=== PATIENT | female | born 1965 | race African-American/Black ===

== ENCOUNTER → 2019-10-16 | Outpatient (CLI) | payer MEDICARE ==
[~2019-10-16] MED LIST: IOHEXOL 300 MG/ML 50 ML VIAL. IT ONE; LIDOCAINE 1% Multi-Dose 20 ML VIAL. ID ONE
--- NOTE | 2019-10-16 12:39 | KCIC ---
Thoracic myelogram 10/16/2019 Clinical History: Chronic mid back pain and burning. Technique: After the risks and benefits of the procedure were explained to the patient, written informed consent was obtained. The patient was placed prone on the fluoroscopy table and the lower back was prepped and draped in sterile fashion. 1% lidocaine was used as a local anesthetic. Under fluoroscopic guidance, the thecal sac of the lumbar cistern was punctured at the L2-L3 level using 25-gauge Danya needle. After confirming clear CSF return, 9 cc of Omnipaque 300 were injected through the needle into the thecal sac of the lumbar cistern under fluoroscopic guidance. Following this the needle was removed and hemostasis achieved at the puncture site. A sterile bandage was placed on the skin puncture site. Following this the contrast column was advanced into the thoracic spine under fluoroscopy and multiple AP and lateral digital spot radiographs of the thoracic spine were obtained. Following this the patient was taken to CT where a CT scan of the thoracic spine was performed. This will be reported separately. Following the examinations the patient was sent home with an instruction sheet. The patient tolerated the procedure well and there were no immediate complications. The total fluoroscopic time for this procedure was 56 seconds. 7 digital spot radiographs were obtained. FINDINGS: Minimal S-shaped curvature of the thoracolumbar spine is seen. Leads related to a stimulator device are seen within the posterior soft tissues of the lower thoracic spine within the midline. Very mild degenerative changes are seen involving the thoracic disc spaces consisting of vertebral endplate sclerosis and minimal to mild anterior vertebral body osteophyte formation. No extradural defect is seen upon the contrast column within the thoracic spine. There is no evidence of complete block of contrast. The patient is post anterior fusion of the mid and lower cervical spine using an anterior plate, bone screws and bone graft material. IMPRESSION: Very mild degenerative changes are seen involving the thoracic spine as discussed above. No extradural defect is seen upon the contrast column. Electronically signed by: Axel Daniels MD (10/16/2019 12:36 PM) [facility]-[id number]
--- NOTE | 2019-10-16 12:59 | KCIC ---
CT thoracic myelogram 10/16/2019 CLINICAL HISTORY: Chronic mid back pain and burning. TECHNIQUE: This study was performed after a thoracic myelogram. Contiguous, 0.6 mm axial sections were obtained through the thoracic spine. 3 mm reconstructed sagittal, axial and coronal images were obtained. One or more of the following individualized dose reduction techniques were utilized for this study: 1. Automated exposure control. 2. Adjustment of the mA and/or kV according to patient size. 3. Use of iterative reconstruction technique. FINDINGS: Comparison is made to the patient's MRI of the lumbar spine dated 08/02/2019. This was performed at [facility]. Additional comparison is made to the patient's thoracic myelogram performed earlier today. Sagittal and coronal reconstructed images demonstrate very mild S-shaped curvature of the thoracolumbar spine. A stimulator device overlies the superior left gluteal region on the public health aides teacher images. Leads extend to the posterior subcutaneous fat of the mid thoracic spine within the midline. Additional stimulator leads extend from this superiorly into the posterior neck. Their superior extent is not included on this study. Very mild degenerative changes are seen involving the thoracic disc spaces consisting of vertebral endplate sclerosis and minimal to mild anterior vertebral body osteophyte formation. On the axial images throughout the thoracic spine degenerative changes are seen involving the facet joints of the lower thoracic disc spaces. No focal disc herniation is seen. No area of significant central spinal canal or neural foraminal stenosis is noted. IMPRESSION: Mild degenerative changes are seen involving the thoracic spine as discussed above. No area of significant central spinal canal or neural foraminal stenosis is seen. Electronically signed by: Axel Daniels MD (10/16/2019 12:56 PM) [facility]-KCIC1
== END | disposition home or self-care (01) ==
LOC: KCIC 09:50
PROVIDERS: ATTEND Neurological Surgery
DX: M47.814 Spondylosis without myelopathy or radiculopathy, thoracic region (principal); M25.78 Osteophyte, vertebrae; G89.29 Other chronic pain
CPT/HCPCS: 72129; 72255; Q9967

== ENCOUNTER → 2019-11-17 | Outpatient (CLI) | payer MEDICARE ==
[~2019-11-17] MED LIST changes: +CARV25TA2 PO; +CLON1PAT3 TD; +HYDR4TAB45 PO; -IOHEXOL 300 MG/ML 50 ML VIAL. IT ONE; -LIDOCAINE 1% Multi-Dose 20 ML VIAL. ID ONE; +LINZESS290 MCG PO; +OXYC20TA PO
--- NOTE | 2019-11-17 14:50 | EKG ---
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
--- NOTE | 2019-11-17 19:34 | RAD ---
CHEST PA LATERAL History: Preoperative evaluation. Removal of the stimulator. Comparison: None. Findings: Frontal and lateral view of the chest were obtained. The cardiomediastinal silhouette is normal. Pulmonary vasculature is normal. The lungs are clear. No pleural effusion or pneumothorax is seen. There is no acute bone abnormality. Stimulator leads are noted within the soft tissues of the back extending superiorly beyond the [id number]. These also extend inferiorly beyond the atqoq-wp-nvey. IMPRESSION: No acute cardiopulmonary process. Electronically signed by: Jr Hicks MD (11/17/2019 7:31 PM) [id number]
== END | disposition home or self-care (01) ==
LOC: SURGPAT 13:55
PROVIDERS: ATTEND Neurological Surgery
DX: Z01.818 Encounter for other preprocedural examination (principal); M54.5 Low back pain; M54.2 Cervicalgia; Z91.040 Latex allergy status; Z88.0 Allergy status to penicillin; Z88.2 Allergy status to sulfonamides; Z88.8 Allergy status to other drugs, medicaments and biological substances
CPT/HCPCS: 71046; 93005

== ENCOUNTER 2019-11-28 07:14 | Observation (INO) | payer MEDICARE ==
[2019-11-28] VITALS (10 sets, daily range): BP systolic 126–165; BP diastolic 78–107
[~2019-11-28] VITALS: Ht 154.9 cm; Wt 68.0 kg
[~2019-11-28 07:14] MED LIST changes: +BACITRACIN 50,000 UNIT in IV NORMAL SALINE 1000ML BAG 1,000 ML IRR ONE; +IV RINGERS,LACTATED 1000ML 1,000 ML IV SCH; +MORPHINE SULFATE 2 MG/ML VIAL. IV PRN; +ONDANSETRON PF 4 MG/2 ML VIAL. IV PRN; +fentaNYL PF VIAL 100 MCG/2 ML VIAL IV PRN
[2019-11-28] MEDS ORDERED: BUPIVACAINE MPF 0.5% 30 ML VIAL. ONE (07:19)
[2019-11-28] MEDS ORDERED: LIDOCAINE 1%/EPI 1:100,000 20 ML VIAL. ONE (07:19)
[2019-11-28] MEDS ORDERED: GELATIN SPONGE SIZE 100. ONE (07:19)
[2019-11-28] MEDS ORDERED: THROMBIN TOPICAL 20,000 UNIT SPRAY.SYRN KIT TP ONE (07:19)
[2019-11-28] MEDS ORDERED: CLINDAMYCIN 900MG PREMIX 50 ML IV ONE (08:13)
[2019-11-28] MEDS ORDERED: LIDOCAINE 2% PF 5 ML VIAL. ONE (08:22)
[2019-11-28] MEDS ORDERED: ONDANSETRON PF 4 MG/2 ML VIAL. ONE (08:22)
[2019-11-28] MEDS ORDERED: ROCURONIUM 50 MG/5 ML VIAL. ONE (08:22)
[2019-11-28] MEDS ORDERED: MIDAZOLAM HCL/PF 2 MG/2 ML VIAL. ONE (08:22)
[2019-11-28] MEDS ORDERED: PROPOFOL 20 ML IV ONE ×2 (08:22→11:58)
[2019-11-28] MEDS ORDERED: DEXAMETHASONE SOD PHOS 20 MG/5 ML VIAL. ONE (08:22)
[2019-11-28] MEDS ORDERED: fentaNYL PF VIAL 100 MCG/2 ML VIAL ONE ×2 (08:22→11:35)
[2019-11-28] MEDS ORDERED: PHENYLEPHRINE in 0.9% NACL PF 1 MG/10 ML SYRINGE. IV ONE (10:13)
[2019-11-28] MEDS ORDERED: ePHEDrine PF IN SALINE 50 MG/10 ML SYRINGE. IV ONE (10:13)
[2019-11-28] MEDS ORDERED: GLYCOPYRROLATE 1 MG/5 ML VIAL. ONE (11:33)
[2019-11-28] MEDS ORDERED: NEOSTIGMINE METHYLSULFATE 5 MG/5 ML SYRINGE. ONE (11:34)
[2019-11-28] MEDS ORDERED: DESFLURANE > 120 MINUTES IH ONE (11:35)
[2019-11-28] MEDS ORDERED: IV NORMAL SALINE 1000ML BAG 1,000 ML IV SCH (12:29)
[2019-11-28] MEDS ORDERED: CALCIUM CARBONATE 500 MG TAB.CHEW PO PRN (12:30)
[2019-11-28] MEDS ORDERED: NALOXONE 0.4 MG/ML VIAL. IV PRN ×2 (12:30)
[2019-11-28] MEDS ORDERED: fentaNYL PF VIAL 100 MCG/2 ML VIAL IVP PRN (12:30)
[2019-11-28] MEDS ORDERED: ZOLPIDEM 5 MG TABLET. PO PRN (12:30)
[2019-11-28] MEDS ORDERED: ACETAMINOPHEN 325 MG TABLET. PO PRN (12:30)
[2019-11-28] MEDS ORDERED: diphenhydrAMINE HCL 25 MG CAPSULE PO PRN (12:30)
[2019-11-28] MEDS ORDERED: MAG HYDROX/ALUMINUM HYD/SIMETH 30 ML ORAL.SUSP PO PRN (12:30)
[2019-11-28] MEDS ORDERED: diphenhydrAMINE 50 MG/ML VIAL IV PRN (12:30)
[2019-11-28] MEDS ORDERED: MAGNESIUM HYDROXIDE 2,400 MG/30 ML ORAL.SUSP. PO PRN (12:30)
[2019-11-28] MEDS ORDERED: 0.9 % SODIUM CHLORIDE 10 ML DISP.SYRIN. IV PRN (12:30)
[2019-11-28] MEDS ORDERED: oxyCODONE/APAP 5/325 1 TAB TABLET PO PRN (12:30)
[2019-11-28] MEDS ORDERED: ONDANSETRON PF 4 MG/2 ML VIAL. IVP PRN (12:30)
--- NOTE | 2019-11-28 12:38 | PDOC ---
BRIEF OPERATIVE NOTE Date: Nov 28, 2019 Pre-Op Diagnosis neck pain, back pain, nonfunctional occipital nerve stimulator Post-Op Diagnosis same Procedure Performed removal of occipital nerve stimulator leads (3), extension wires (2), and pulse generator Surgeon Maximilian Cabral Anesthesia Type: General Blood Loss 20mL Specimens Obtained explant of aforementioned hardware sent to be cleaned for return to patient at request of patient Findings fracture noted in one of the leads Complications none apparent Operative Note dictated PRINCE CANO MD Nov 28, 2019 12:38
[2019-11-28] MEDS: PROCHLORPERAZINE 10 MG/2 ML VIAL. IV PRN ×2 (12:56→14:19)
[2019-11-28] MEDS: fentaNYL PF VIAL 100 MCG/2 ML VIAL IV PRN ×2 (12:59→13:27)
[2019-11-28] MEDS: HYDROmorphone 2 MG/ML VIAL IV PRN ×3 (13:01→14:19)
--- NOTE | 2019-11-28 13:15 | OP ---
DATE OF SURGERY: 11/28/2019 SURGEON: Sam Cano MD WRAPPER HAND: Misha. PREOPERATIVE DIAGNOSES: Neck pain, back pain; nonfunctional occipital nerve stimulator comprised of 3 leads, 2 extension wires and 1 pulse generator. PROCEDURE: Removal of occipital nerve stimulator leads x 3, extension wires x 2, and pulse generator x 1. ANESTHESIA: General. COMPLICATIONS: None. INDICATIONS FOR THE PROCEDURE: The patient is a 54-year-old female with a nonfunctional nerve stimulator, which was removal of the entire system. Please refer to the patient chart for additional detail. DESCRIPTION OF PROCEDURE: After informed consent was obtained, the patient was brought into the operating room. She was placed under general anesthesia, placed in the prone position on the Jens table with a horseshoe desizing machine operator head end attached to a Dewey. All pressure points were checked and padded appropriately. Clindamycin was administered as a prophylactic antibiotic. The fluoroscopy was utilized to verify the patient's prior incision locations relative to the hardware. There was a prior incision noted in the suboccipital region, there is a prior incision noted in the mid thoracic region, and there is a prior incision noted at the region of the left flank which was the location of the pulse generator. All of these regions and the regions in between these locations were prepped and draped in usual sterile fashion. Attention was first exhibited towards the thoracic incision, which was reopened with a 15-blade scalpel. Blunt dissection techniques were utilized to dissect the distal end of one the leads as well as the extension wire connections which were removed multiple times ____ incision. The was slightly extended caudally in a small hockey stick fashion to release the scar to the extent of the scar tissue around the hardware at this location. The 2 leads were attached to extension wires, 1 lead was not. The lead not attached to extension wire was readily able to be removed in its entirety with no resistance from its more cephalad location through the thoracic incision. One of the leads attached to the extension wire was also easily able to be removed with 0 resistance; however, it was noted that this lead had a small fracture in it and only part of the most proximal contact was present. The other lead attached to the extension wire was not readily removable through the thoracic incision and this was left. At this time, attention was then turned to the pulse generator. The incision was reopened with a 10-blade scalpel. Blunt dissection techniques were utilized to dissect down to the pulse generator. The extension wires were noted to have a Y-connection, which inserted into one of the inserts of the pulse generator and the lead without the extension wire was inserted into the other connections of the pulse generator. Once the generator, extension wires and leads were free at the pulse generator site, attention was turned to the occipital incision. This was reopened with a 10-blade scalpel and blunt dissection techniques were utilized to release the occipital lead that was attached to one of the extension wires, which was not able to be removed via the thoracic incision. This was loosened and then subsequently removed in its entirety at the thoracic incision. Fluoroscopy was utilized to localize the distal portion of the lead that was noted to have fractured. This was noted across the midline just caudal to the prior occipital incision. A new incision was made caudal to this location and the fragment was gently released and then removed via this incision as well as a second incision just caudal to the first new incision. Once this was complete, fluoroscopy was utilized to verify removal of the hardware in its entirety. In the lower thoracic region, it was noted that there was a possible piece of wire in a remote trajectory. Small incision was utilized to explore this region; however, some scar tissue was noted but no lead was present. This was verified with prior imaging that no definite hardware lead was at this location. Once all hardware was removed, the wound sites were generously irrigated with antibiotic irrigation. The wounds were reapproximated with 0 Vicryl and 2-0 Vicryl for the subcutaneous tissues and 4-0 Vicryl in a running subcuticular fashion for the skin. All wounds were dressed with Steri-Strips, Mastisol, Telfa, and Tegaderm. Fluoroscopy was again utilized to verify complete removal of the entire system at the completion of the procedure and verified against prior imaging. At the end of procedure, all needle and sponge counts were correct x 2. The patient was extubated in the operating room and taken to recovery in stable condition. There were no intraprocedural complications apparent. SAM CANO MD DR: ABHIJEET/ary JOB#: [id number] / [id number]
[2019-11-28] MEDS: MULTIVITAMIN with MINERAL TABLET. PO SCH (14:00)
[2019-11-28] MEDS ORDERED: cloNIDine TTS-3 1 PATCH PATCH.TDWK TD SCH (15:00)
[2019-11-28] MEDS: METHOCARBAMOL 750 MG TABLET PO SCH ×2 (15:23→21:31)
[2019-11-28] MEDS: LUBIPROSTONE 24 MCG CAPSULE PO SCH (18:15)
[2019-11-28] MEDS: CARVEDILOL 12.5 MG TABLET. PO SCH (18:16)
[2019-11-28] MEDS: oxyCODONE/APAP 5/325 1 TAB TABLET PO PRN (18:16)
[2019-11-28] MEDS: CALCIUM CARB/VIT D3 500/200 TABLET. PO SCH (18:17)
[2019-11-28] MEDS: FERROUS SULFATE 325 MG TABLET. PO SCH (18:17)
[2019-11-28] MEDS: fentaNYL PF VIAL 100 MCG/2 ML VIAL IVP PRN (19:44)
[2019-11-28] MEDS: DOCUSATE SODIUM 100 MG CAPSULE. PO SCH (21:31)
[2019-11-28] MEDS: SENNOSIDES/DOCUSATE 8.6/50MG TABLET. PO SCH (21:31)
[2019-11-29 03:00] VITALS: BP 148/80
[2019-11-29] MEDS ORDERED: CLINDAMYCIN 900MG PREMIX 50 ML IV PRN (06:00)
[2019-11-29 07:00] VITALS: BP 143/87
--- NOTE | 2019-11-29 07:45 | NUR ---
Resting in bed. Anxious to go home. Refused breakfast. Sister at bedside. Cont. monitor.
[2019-11-29] MEDS: oxyCODONE/APAP 5/325 1 TAB TABLET PO PRN (08:13)
[2019-11-29] MEDS: METHOCARBAMOL 750 MG TABLET PO SCH (08:13)
[2019-11-29] MEDS: DOCUSATE SODIUM 100 MG CAPSULE. PO SCH (08:13)
[2019-11-29] MEDS: MULTIVITAMIN with MINERAL TABLET. PO SCH (08:14)
[2019-11-29] MEDS: CALCIUM CARB/VIT D3 500/200 TABLET. PO SCH (08:14)
[2019-11-29] MEDS: SENNOSIDES/DOCUSATE 8.6/50MG TABLET. PO SCH (08:14)
[2019-11-29] MEDS: LUBIPROSTONE 24 MCG CAPSULE PO SCH (08:14)
[2019-11-29] MEDS: CARVEDILOL 12.5 MG TABLET. PO SCH (08:15)
[2019-11-29] MEDS: FERROUS SULFATE 325 MG TABLET. PO SCH (08:15)
--- NOTE | 2019-11-29 09:00 | NUR ---
Pt moving around in bed without difficulty. Ambulates with steady gait. Still c/o pain at "9".
[2019-11-29] MEDS: fentaNYL PF VIAL 100 MCG/2 ML VIAL IVP PRN (09:50)
--- NOTE | 2019-11-29 10:07 | PDOC ---
Progress Note: S: reports happy to have system removed, states back feels better than before, some incisional discomfort, ambulating without problem, clear by PT for d/c 0: AF/VSS, AAOx4, NAD, CORTÉS 5/5, sensation intact LT, dressings scant shadow, otherwise c/d/i A: POD1 removal of occipital nerve stimulator leads, extension wires, generator P: d/c home today with standard post-op restrictions, follow-up in two weeks, all questions answered, all in agreement PRINCE CANO MD Nov 29, 2019 10:07
[2019-11-29] MEDS ORDERED: METH-38 PO (10:54)
[2019-11-29] MEDS ORDERED: SENN1TAB99 PO (10:55)
[2019-11-29] MEDS ORDERED: OXYC-325 PO (10:56)
[2019-11-29 11:00] VITALS: BP 118/80
--- NOTE | 2019-11-29 11:17 | NUR ---
Discharge instructions given with prescriptions. Answered questions and concerns. Verbalized understanding. Discharged home accompanied by spouse.
== END 2019-11-29 11:17 | disposition home or self-care (01) ==
LOC: SURG 07:14 → 4 SOUTHEST 13:30
PROVIDERS: ADMIT Neurological Surgery; ATTEND Neurological Surgery
DX: M54.2 Cervicalgia (principal); M54.9 Dorsalgia, unspecified
CPT/HCPCS: 64744; 76000; 96374; 96375; 96376; 97161; A7015; C1713; G0378; G0379; J0171; J0780; J1100; J1170; J2001; J2250; J2370; J2405; J2704; J2710; J3010; J3490; J7030

== ENCOUNTER → 2020-05-29 | Outpatient (CLI) | payer MEDICARE ==
[~2020-05-29] MED LIST changes: -BACITRACIN 50,000 UNIT in IV NORMAL SALINE 1000ML BAG 1,000 ML IRR ONE; +IOHEXOL 300 MG/ML 50 ML VIAL. IT ONE; -IV RINGERS,LACTATED 1000ML 1,000 ML IV SCH; +LIDOCAINE 1% Multi-Dose 20 ML VIAL. ID ONE; +METH-38 PO; -MORPHINE SULFATE 2 MG/ML VIAL. IV PRN; -ONDANSETRON PF 4 MG/2 ML VIAL. IV PRN; +OXYC-325 PO; +SENN1TAB99 PO; -fentaNYL PF VIAL 100 MCG/2 ML VIAL IV PRN
--- NOTE | 2020-05-29 16:02 | KCIC ---
Cervical spine CT without contrast History: Neck pain, left arm pain, cervical fusion November 2019 Technique: Noncontrast CT imaging was performed of the cervical spine. Multiplanar images are reviewed. Exposure: One or more of the following individualized dose reduction techniques were utilized for this examination: 1. Automated exposure control 2. Adjustment of the mA and/or kV according to patient size 3. Use of iterative reconstruction technique. Comparison: December 20, 2016 CT cervical spine exam Findings: There is again anterior cervical fusion hardware C4 to the superior aspect of C6. There is complete interbody fusion at C4-5. There is not interbody fusion at C5-6, screws coursing into the inferior origin of the intervertebral disc space. There is advanced degenerative disc disease at C3-4 as seen previously. There is moderate to severe degenerative disc disease C6-7 which has progressed in the interval. Cervical vertebral body stature is similar. There is minimal anterior spondylolisthesis C7-T1 and C2-3, very minimal posterior subluxation C3 relative to C4. There is straightening of the cervical spine. Cervical cord caliber is within normal limits. There is adequate alignment of the lateral masses of C1 relative to C2. Occipital condylar-C1 articulation is maintained. There is atherosclerotic calcification of the left carotid artery in the neck. Some density near the lung lung apices bilaterally is more likely component of fibrotic change. C2-3: There is severe left facet hypertrophic change, to a lesser degree on the right. The spinal canal and right neural foramen are adequate, mild narrowing of the left neural foramen. There is very mild left uncovertebral degenerative change. C3-4: There is minimal disc osteophyte complex. Central canal is adequate about 11 mm. There is moderate facet hypertrophic change somewhat greater on the right. There is bilateral uncovertebral degenerative change. There is fairly severe right and zcuz-vz-yqtrdkpz left neural foramina compromise. C4-5: Neural foramina and spinal canal are adequate. C5-6: Spinal canal and neural foramina are adequate. There is facet degenerative change bilaterally. C6-7: There is minimal disc osteophyte complex. Central canal is adequate about 13 mm. There is bilateral uncovertebral degenerative change. Neural foramina are adequate. C7-T1: Spinal canal and neural foramina are adequate. Impression: 1. There is anterior cervical fusion hardware C4 to the superior margin of C6 as described. There is osseous interbody fusion at C4-5, not apparent at C5-6. 2. There is degenerative disc disease at C3-4 and C6-7. 3. There is severe right and icfv-zi-nhostnbn left C3-4 neural foramina compromise due to facet and uncovertebral degenerative change. There is mild narrowing of the left C2-3 neural foramen. Electronically signed by: Robi Mccormick MD (05/29/2020 3:59 PM) [id number]
--- NOTE | 2020-05-29 16:15 | KCIC ---
Cervical myelogram History: Neck pain, left arm pain, previous cervical fusion Technique: Patient was informed of the risks of the procedure to include pain, infection, bleeding, seizures, nerve root injury, and allergic reaction to the contrast. All questions were answered. Patient signed a written consent form for a cervical myelogram. The patient was placed in a prone oblique position on the fluoroscopy table. External site of the lower back was prepped and draped in the usual sterile fashion. Betadine was utilized for cleansing solution. 5 cc of 1% lidocaine were utilized for local anesthesia at the anticipated site of puncture right L2-3 interlaminar space. A 19-gauge guiding needle was advanced into the soft tissues. Through the guiding needle, a 25 gauge Danya needle was advanced. The patient stated was having pain at the needle site but wished to continue with procedure. Due to pain, additional 3 cc of 1% lidocaine were injected through separate syringe and needle at skin surface near needle site. The 25-gauge Danya needle was then redirected and advanced until return of clear cerebrospinal spinal fluid. Approximately 10 cc cc of Omnipaque 300 were then injected during fluoroscopic visualization. The needles were removed. Patient was repositioned so as to allow for the flow of contrast into the cervical spine. Fluoroscopic spot images and lateral view were acquired. All questions were answered. Patient was given instructions for hydration and to limit activity the remainder of the day. Patient was transferred to the CT department for CT examination of the cervical spine. There were no immediate complications. Fluoroscopy time: 63 seconds, 7 images Findings: There is anterior fusion hardware C4 to C5-6. There is anterior extradural defect at C3-4. There is no evidence of myelographic block. There is multilevel cervical facet degenerative change. Impression: 1. There is no evidence of myelographic block. There is anterior cervical fusion hardware C4 to C5-6. Electronically signed by: Robi Mccormick MD (05/29/2020 4:12 PM) [id number]
== END | disposition home or self-care (01) ==
LOC: KCIC 13:18
PROVIDERS: ATTEND Neurological Surgery
DX: M50.123 Cervical disc disorder at C6-C7 level with radiculopathy (principal); M50.31 Other cervical disc degeneration, high cervical region; Z88.0 Allergy status to penicillin; Z88.2 Allergy status to sulfonamides; Z88.8 Allergy status to other drugs, medicaments and biological substances; Z98.890 Other specified postprocedural states; Z79.899 Other long term (current) drug therapy; Z80.8 Family history of malignant neoplasm of other organs or systems; Z82.3 Family history of stroke
CPT/HCPCS: 62302; 72126; J3490; Q9967